=== PATIENT | female | born 1950 | race Caucasian/White ===

== ENCOUNTER → 2021-05-10 15:46 | Outpatient (CLI) | payer MEDICARE, OTHER, SELFPAY ==
--- NOTE | 2021-05-10 15:50 | CT_ITS ---
STUDY: RIGHT LOWER EXTREMITY CT SCAN REASON FOR EXAM: Female, 70 years old. PRE OP. Arthroplasty planning. Osteoarthritis. RADIATION DOSAGE (If Supplied By Facility): CTDIvol = ( 18.76 ) mGy, DLP = ( 1196.64 ) mGycm. Individualized dose optimization techniques were used for this CT.? TECHNIQUE: Axial multidetector CT scan of the right lower extremity. Coronal and sagittal reformatted images. COMPARISON: None. FINDINGS: No acute fracture, dislocation or bone destruction. No acute muscle abnormality. No solid, cystic or lipomatous soft tissue lesions given CT technique. Right hip: Mild right hip osteoarthritis. Moderate pubic symphysis arthrosis. Hysterectomy. Colonic diverticulosis. Right knee: Mild patellofemoral arthrosis. Severe medial compartment arthrosis. Mild/moderate lateral compartment arthrosis. Osteophytes. Moderate volume joint effusion. Small popliteal cyst. Moderate anterior swelling. Right ankle: Mild tibiotalar arthrosis. Tiny plantar spur. CT/Extremity Lower without Contra IMPRESSION: Right knee osteoarthritis predominating medially Right knee joint effusion, popliteal cyst and swelling Additional degenerative changes, as above Electronically Signed: Deon Cody DO at 8:15 EDT Tel , Service support ,
== END ==
PROVIDERS: PCP Family Medicine; Referring Provider Physician Assistant Surgical; Visit Provider Physician Assistant Surgical
DX: M17.11 Unilateral primary osteoarthritis, right knee (principal)
CPT/HCPCS: 73700

== ENCOUNTER → 2021-05-24 10:05 | Outpatient (CLI) | payer MEDICARE, OTHER, SELFPAY ==
--- NOTE | 2021-05-11 21:23 | HP.PCM_ITS ---
History and Physical History and Physical [facility] Patient Name: Julissa Ahmadi : 1950 From: GAIL MCKEON PA-C DATE OF SURGERY: 05/31/2021 SCHEDULED PROCEDURE: right total knee arthroplasty HISTORY OF PRESENT ILLNESS: Preoperative history and physical exam was performed on May 10, 2021. Patient has had ongoing bilateral knee pain since 2011. She states over the past 1 year it has been progressively been getting worse. She was initially treated by outside orthopedic group. She has had previous corticosteroid injections in the bilateral knees with only 2 weeks of relief. Her pain is continued to be aching, sharp, stabbing, sore. Increased pain going up and down stairs and walking. Increased pain with prolonged standing. She has difficulty with bathing/showering, getting dressed, housework, and shopping. She has trips are stumbled due to the pain. She has pain and feels unsafe climbing a ladder. She has tried rest, ice, elevation with minimal relief. She has tried oral medications with no relief in symptoms. She denies previous surgery on the knee. Her pain can reach his high as an 8/10. After failing conservative measures and discussing all treatment options with Dr. Steve Mckay, the patient does wish to proceed with a right total knee arthroplasty. We are obtaining surgical clearance from the patient's primary care physician Dr. Dumas. She has medical history pertinent for thyroid disease, hypertension, depression. She denies chest pain, shortness of breath, fevers chills, recent infections. REVIEW OF SYSTEMS: ROS: Const: Reports change in appetite and weight change, but denies fever. CV: Reports irregular heartbeat, but denies chest pain and heart murmur. Resp: Reports cough, but denies pneumonia, shortness of breath, tuberculosis and wheezing. GI: Reports heartburn, but denies constipation, diarrhea, nausea, rectal itching, bloody stools and vomiting. : Denies incontinence. Musculo: Reports gait disturbance, leg swelling, trouble walking and weakness, but denies pain. Skin: Denies Raynaud's, history of shingles and tattoo. Neuro: Denies ambulatory dysfunction, dizziness, numbness/tingling and tremor. Psych: Denies anxiety, insomnia and stress. Brett/Lymph: Denies anemia, bleeding/bruising tendency and past transfusion. Reviewed, no changes. PAST MEDICAL HISTORY: Advance Care Plan: No Advance Directives Effective Date: 04/21/2021 PMH: Medical Problems: Arthritis, Depression, Hard of Hearing, High Blood Pressure, Hypercholesterolemia, Thyroid Disease Accidents: None Surgical Hx: Hysterectomy - (2000) [facility] Shoulder Arthroscopy Rt - (2010) [facility] Anesthesia Complications: None Assistive Devices: Glasses - READING Reviewed and updated. SOCIAL HISTORY: SH: Marital: .Occupation: Retired.Work Status: Retired.Hand Dominance: Left- handed. Personal Habits: Cigarette Use: Never Smoked Cigarettes.Smokeless Tobacco: Never Used Smokeless Tobacco.E-Cigarette Use: Never used.Alcohol: Denies use.Drug Use: Denies Use.Enjoy Exercising: Exercises 1-3 x/month. Reviewed, no changes. VITALS: Ht: 63 Wt: 164lb Wt k.390 BMI: 29.0 BP: 126/82 Pulse: 76 Resp: 14 T: 97.3 T: 36.3C Pain Level: 5 ALLERGIES: Medications For High Cholesterol MEDICATIONS: Esomeprazole Magnesium 20 mg 1po bid, Ibuprofen 200 200 mg 2 by mouth as needed, Levothyroxine Sodium 112 mcg 1po qday, Lisinopril 20 mg 1po bid, Venlafaxine HCL 100 mg 1.5 PO qday PRE-OP EXAM: General appearance:NORMAL Other: Eyes: Conjunctivae and lids: NORMAL Pupils: ERR Ears, Nose, Mouth, and Throat: NORMAL Other: Inspection of lips, teeth and gums: NORMAL Other: Neck: Examination of neck: no masses noted. Respiratory: Assessment of respiratory effort: NORMAL Other: Auscultation of lungs: clear to auscultation no wheezes, rhonchi or rales. Cardiovascular: Auscultation of heart: regular rate and rhythm, no murmurs, gallops or rubs. Exam of carotid arteries: NORMAL Other: Gastrointestinal: Exam of abdomen: soft, nontender, nondistended bowel sounds present. PHYSICAL EXAMINATION: Patient's right knee is cool to touch without erythema or signs of infection. She has tenderness to palpation along medial joint line. Bilateral knees have varus deformity which is partially correctable on exam. She has positive crepitus in bilateral knees. Range of motion: Right knee lacks 2 full extension to 90 flexion with increased pain, left knee lacks 1 full extension 120 flexion. She does walk with an antalgic gait. Stable to anterior/posterior drawer. Sensation intact to light touch. IMAGING STUDIES: X-ray of the right knee was reviewed from outside institution on December 23, 2020 reveals medial joint space narrowing, subchondral sclerosis, osteophyte f ormation consistent with severe medial compartment osteoarthritis with bony erosions. There is varus deformity. Patient does have tricompartmental osteoarthritis with most severe in the medial compartment. X-rays of the left knee were reviewed from outside institution on December 23, 2020 reveals varus deformity with medial joint space narrowing, subchondral sclerosis, osteophyte formation consistent with grade 4 tricompartmental osteoarthritis with most severe in the medial compartment. There are bony erosions in the medial compartment. IMPRESSION: 1. Severe right knee osteoarthritis with varus deformity 2. Severe left knee osteoarthritis with varus deformity 3. Hypertension 4. Thyroid disease 5. Hypercholesterolemia 6. Depression PLAN: I did discuss and review with the patient all treatment options including surgical versus nonsurgical options. Patient does wish to proceed with the above-stated procedure. Potential risks, benefits, and complications of the procedure were discussed in detail including but not limited to , infection, nerve and blood vessel damage, persistent pain, numbness, tingling, paresthesias, blood clot, pulmonary embolism, and requirement for possible further surgery. The patient expressed full understanding and has no further questions for the doctor. Patient does agree to proceed with the above-stated procedure and has signed the surgery consent form. We discussed the current risks associated with COVID 19. This does include the risk of exposure while in the hospital. Patient was reassured local hospitals have low infection rates and are taking all necessary precautions to avoid exposure to patients. In addition, we discussed strategies that can be used to help limit exposure including those that limit the patient's time in the hospital. Also using strategies to limit the patient's need for continued inpatient services after being discharged from the hospital. Patient was notified that we will need to comply with any screening or testing the hospital wishes to perform or that surgery may be delayed for any positive results. This dictation was created using voice recognition software. Phonetic and/or grammatical errors may exist. ___ I have re-examined the patient. There are no clinical changes since date of exam. ___ See progress notes for changes. ___ Dictated on admission Date: Time: Signature:
[2021-05-24 13:41] LABS: Absolute Lymphocyte Count 1.39 X10^3/uL (0.83-4.51); Absolute Neutrophil Count 3.2 X10^3/uL (2.0-7.7); Basophil# 0.03 X10^3/uL; Basophil% 0.6 % (0-1); Eosinophil# 0.13 X10^3/uL; Eosinophils% 2.5 % (0-5); Hematocrit 43.9 % (37-47); Hemoglobin 14.2 g/dL (12.0-15.0); Lymphocyte # 1.39 X10^3/ul (0.83-4.51); Lymphocyte % 26.9 % (19-41); Mean Corp Hgb Conc 32.3 g/dL (32-36); Mean Corpuscular Hgb 31.5 pg (27.0-32.0); Mean Corpuscular Volume 97.3 fL (81-99); Mean Platelet Vol. 9.8 fl (6.2-12.0); Monocyte# 0.37 X10^3/uL; Monocyte% 7.2 % (0-10); NRBC Flagged by Analyzer 0 % (0-5); Platelet Count 276 K/mm3 (150-450); RBC Distribution Width CV 13.2 % (11.6-14.6); RBC Distribution Width SD 47.6 fl (35.1-43.9); Red Blood Count 4.51 M/mm3 (4.2-5.4); White Blood Count 5.2 K/mm3 (4.4-11.0)
[2021-05-24 14:09] LABS: Albumin, Serum 3.3 g/dL (3.2-5.0); Anion Gap 3 (5-15); BUN 15 mg/dL (7-18); BUN/Creat Ratio 21.5 RATIO (10-20); Calcium,Total 9.4 mg/dL (8.5-10.1); Chloride 106 mmol/L (98-107); EST Glomerular Filtration Rate 88 mL/min (>60); Est Glom Filt Rate - Afr Amer 107 mL/min (>60); Glucose 108 mg/dL (74-106); Potassium 4.2 mmol/L (3.5-5.1); Sodium Level 138 mmol/L (136-145); Thyroid Stim Hormone (TSH) 2.27 uIU/mL (0.358-3.74)
[2021-05-25 08:18] LABS: Magnesium 2.3 mg/dL (1.6-2.6)
== END ==
PROVIDERS: Anesthesiology; PCP Family Medicine; Referring Provider Specialist; Visit Provider Specialist
DX: Z01.810 Encounter for preprocedural cardiovascular examination (principal); Z01.818 Encounter for other preprocedural examination
CPT/HCPCS: 36415; 80048; 82040; 83735; 84443; 85025; 87081

== ENCOUNTER → 2021-06-19 16:01 | Outpatient (CLI) | payer MEDICARE, OTHER, SELFPAY ==
[2021-06-19 17:32] LABS: Absolute Lymphocyte Count 1.84 X10^3/uL (0.83-4.51); Absolute Neutrophil Count 3.3 X10^3/uL (2.0-7.7); Basophil# 0.02 X10^3/uL; Basophil% 0.3 % (0-1); Eosinophil# 0.13 X10^3/uL; Eosinophils% 2.3 % (0-5); Hematocrit 44.7 % (37-47); Hemoglobin 14.3 g/dL (12.0-15.0); Lymphocyte # 1.84 X10^3/ul (0.83-4.51); Lymphocyte % 31.9 % (19-41); Mean Corpuscular Hgb 30.9 pg (27.0-32.0); Mean Corpuscular Volume 96.5 fL (81-99); Mean Platelet Vol. 10.5 fl (6.2-12.0); Monocyte# 0.49 X10^3/uL; Monocyte% 8.5 % (0-10); NRBC Flagged by Analyzer 0 % (0-5); Neutrophil # 3.26 X10^3/uL (2.7-7.7); Neutrophil % 56.5 % (47-70); Platelet Count 247 K/mm3 (150-450); RBC Distribution Width CV 13.2 % (11.6-14.6); RBC Distribution Width SD 47.1 fl (35.1-43.9); Red Blood Count 4.63 M/mm3 (4.2-5.4); White Blood Count 5.8 K/mm3 (4.4-11.0)
[2021-06-19 18:10] LABS: Anion Gap 6 (5-15); BUN 15 mg/dL (7-18); BUN/Creat Ratio 21.3 RATIO (10-20); Calcium,Total 9.6 mg/dL (8.5-10.1); Chloride 107 mmol/L (98-107); EST Glomerular Filtration Rate 87 mL/min (>60); Est Glom Filt Rate - Afr Amer 105 mL/min (>60); Glucose 97 mg/dL (74-106); Sodium Level 138 mmol/L (136-145)
[2021-06-20 08:55] LABS: Albumin, Serum 3.6 g/dL (3.2-5.0)
== END ==
PROVIDERS: PCP Family Medicine; Referring Provider Physician Assistant Surgical; Visit Provider Physician Assistant Surgical
DX: Z01.818 Encounter for other preprocedural examination (principal)
CPT/HCPCS: 36415; 80048; 82040; 85025

== ENCOUNTER → 2021-07-24 16:01 | Outpatient (CLI) | payer MEDICARE, OTHER, SELFPAY ==
--- NOTE | 2021-07-24 16:03 | VDLE_ITS ---
Reason For Study: Pain RIGHT LEFT GSV is normal. CFV is compressible, spontaneous, phasic, CFV is compressible, spontaneous, phasic, competent, and demonstrates normal competent and demonstrates normal augmentation. augmentation. FV is compressible, spontaneous, phasic, competent and demonstrates normal augmentation. POP V is compressible, spontaneous, phasic, competent and demonstrates normal augmentation. T/P Trunk is compressible. PTV is compressible. Rt SoleusV and Rt PeroV are dilated and non compressible consistent with acute DVT. Procedure This is a venous duplex using B-mode, color flow and spectral Doppler. Exam performed in department. Patient sent to ED. A preliminary report was called and/or faxed to [facility]. VL/Venous Duplex US, Unilateral Interpretation Summary Acute deep venous thrombosis right soleus and peroneal veins. Patent and compressible right great saphenous vein Normal flow patterns left common femoral vein Ordering Physician: Neli Winters Referring Physician: Carter Dumas Performed By: Riya Torres, RU, RVT
== END ==
PROVIDERS: PCP Family Medicine; Referring Provider Physician Assistant Surgical; Visit Provider Physician Assistant Surgical
DX: I82.401 Acute embolism and thrombosis of unspecified deep veins of right lower extremity (principal); Z96.651 Presence of right artificial knee joint; M79.661 Pain in right lower leg; I10 Essential (primary) hypertension; E78.00 Pure hypercholesterolemia, unspecified; F32.A Depression, unspecified; E07.9 Disorder of thyroid, unspecified; K21.9 Gastro-esophageal reflux disease without esophagitis; M19.90 Unspecified osteoarthritis, unspecified site; G43.909 Migraine, unspecified, not intractable, without status migrainosus; Z79.01 Long term (current) use of anticoagulants; Z79.899 Other long term (current) drug therapy
CPT/HCPCS: 85027; 93971; 99283

== ENCOUNTER 2021-07-24 16:44 | Emergency (ER) | payer MEDICARE, OTHER, SELFPAY ==
[2021-07-24 16:45] VITALS: BP 168/96; PULSE 67; RESP 18; TEMP 36.5; O2SAT 99; BMI 31.1
--- NOTE | 2021-07-24 20:06 | ED.VIS.LOWEX ---
HPI History of Present Illness Chief Complaint: Lower Extremity Injury Informant: patient Narrative Narrative: Patient sent here from radiology department for an outpatient ultrasound positive for DVT. Status post elective right total knee arthroplasty [address] Mckay. Patient followed up today. States had pains while in the cast since surgery. No chest pains or shortness of breath. Ultrasound was ordered as an outpatient. Patient sent here after positive findings. Denies history of kidney injury. She states a few months ago had similar symptoms that was self-limiting. No diagnosis of DVT or PE in the past. Reviewing records positive DVT right lower extremity of the soleus and peroneal vein. Prior similar symptoms: Yes PFSH PFSH Medical History Arthritis Back pain Chronic cough Depression Gastric reflux High cholesterol History of echocardiogram History of edema History of irregular heartbeat History of pain when walking History of steroid therapy History of stress test Hypertension Leg cramps Migraine headache Non-smoker Shortness of breath on exertion Thyroid disease Wears glasses Home Medications Lacto.acidophilus-Bif.animalis [Probiotic] 1 cap PO DAILY 05/17/21 [History Last Taken Unknown] acetaminophen-caffeine [Excedrin Tension Headache] 2 tab PO Q8H PRN 05/17/21 [History Last Taken Unknown] esomeprazole magnesium [Nexium 24HR] 20 mg PO DAILY 05/17/21 [History Last Taken Unknown] levothyroxine 112 mcg PO DAILY 05/17/21 [History Last Taken Unknown] lisinopril 20 mg PO BID 05/17/21 [History Last Taken Unknown] venlafaxine 150 mg PO QHS 05/17/21 [History Last Taken Unknown] apixaban [Eliquis DVT-PE Treat 30D Start] 5 mg PO BID #74 tab 07/24/21 [Rx Last Taken Unknown] meloxicam [Mobic] 07/24/21 [History Last Taken Unknown] meloxicam [Mobic] 7.5 mg PO DAILY 07/24/21 [History Last Taken Unknown] oxycodone 07/24/21 [History Last Taken Unknown] Allergy/AdvReac Type Severity Reaction Status Date / Time Ucrbjno-Vzb-Dxw Reductase Allergy Pain in Verified 07/24/21 16:46 Inhibitor joints Surgical History Hx of breast lump removal Hx of colonoscopy Hx of hemorrhoidectomy Hx of hysterectomy Hx of shoulder surgery Social History Smoking Status: Never smoker ROS ROS ED Constitutional Constitutional ED: Denies chills, fever(s) or sweats Eyes Eyes: Denies change in vision ENT ENT ED: Denies dysphagia or sore throat Cardiovascular Cardiovascular: Denies chest pain, leg edema, palpitations or racing heartbeat Respiratory/Chest Respiratory/Chest: Denies cough, dyspnea or dyspnea on exertion Gastrointestinal Gastrointestinal: Denies abdominal pain, diarrhea, nausea or vomiting Genitourinary Genitourinary ED: Denies dysuria, hematuria or urinary frequency Musculoskeletal Musculoskeletal: Reports other Details: Right calf pain ; Denies back pain, extremity pain or neck pain Integumentary Denies rash or wounds Neurologic Neurologic: Denies headache(s), paresthesias or weakness EXAM Physical Exam Const Vital Signs: 07/24/21 16:45 07/24/21 20:25 07/24/21 20:31 Temperature 97.7 F L Temperature Source Temporal Pulse Rate 67 82 62 Respiratory Rate 18 17 17 Blood Pressure 168/96 H Blood Pressure Mean 120 Pulse Ox 99 100 Oxygen Delivery Method Room Air Room Air 07/24/21 20:35 Temperature Temperature Source Pulse Rate Respiratory Rate Blood Pressure 186/99 H Blood Pressure Mean 128 Pulse Ox Oxygen Delivery Method Positive well nourished and well developed General Appearance ED: well developed and NAD HEENT Reports moist mucous membranes normocephalic and atraumatic Eyes PERRL, EOMs intact bilaterally and conjunctivae normal General Eye ED: Yes normal appearance of both eyes Neck no lymphadenopathy and supple General: Negative for tenderness Chest Wall Chest: Negative for tenderness Resp normal respiratory effort and normal air movement Effort and Inspection: symmetric chest movement; Negative for respiratory distress Cardio regular rate, regular rhythm and no murmurs Peripheral Pulses: pulses 2+ throughout GI normal to inspection, nondistended, normoactive bowel sounds and non-tender Palpation: Negative for guarding or rebound tenderness present Back/Spine no CVA tenderness and no thoracic nor lumbar tenderness Extremity Extremity Narrative: Right lower extremity slight asymmetry with swelling. Mild calf pain. Knee incision healing with no erythema or drainage. Also healing excision of the distal mid anterior tibia. No erythema. Pulses are intact distally. General Extremety ED: Yes edema; Negative for tenderness General Extremity: edema Neuro oriented x3 and no sensory deficits noted Sensorium / Orientation: awake and alert Skin no rashes or lesions noted and no wounds MDM MDM MDM Narrative Medical decision making narrative: Patient positive distal leg DVT. Creatinine clearance was 87 with a creatinine of 0.7 June 19, 2021. Patient started on Eliquis 10 mg. Starter pack provided. Will discuss with her primary team for continued management for least 3 to 6 months. Patient will monitor for any bleeding issues. I spoke with her PCP Dr. Dumas updated on patient's final results. Preop hemoglobin is 14. He requests recheck for baseline following. This was ordered. He agrees with plan of care. He will see her this week in the office. All questions were answered with patient. Lab Data Attestation: I reviewed the patient's lab results. Labs: Laboratory Results - last 24 hr 07/24/21 20:30 WBC 10.3 RBC 4.18 L Hgb 12.9 Hct 40.4 MCV 96.7 MCH 30.9 MCHC 31.9 L RDW Std Deviation 48.9 H RDW Coeff of Kari 13.7 Plt Count 459 H MPV 8.8 Discharge Plan Triage Chief Complaint: Lower Extremity Injury ED Provider: Ziggy Richter Dx/Rx/DC Orders Clinical Impression: Acute deep vein thrombosis (DVT) of right lower extremity, Status post revision of total replacement of right knee Instructions: DVT Dc Prescriptions: New Eliquis DVT-PE Treat 30D Start 5 mg (74 tabs) tablets,dose pack 5 mg PO BID Qty: 74 RF: 0 No Action Excedrin Tension Headache 500-65 mg Tablet 2 tab PO Q8H PRN (Reason: Headache) RF: 0 lisinopril 20 mg tablet 20 mg PO BID RF: 0 venlafaxine 150 mg capsule,extended release 24hr 150 mg PO QHS RF: 0 levothyroxine 112 mcg tablet 112 mcg PO DAILY RF: 0 esomeprazole magnesium [Nexium 24HR] 20 mg Capsule,Delayed Release(Dr/Ec) 20 mg PO DAILY RF: 0 Probiotic 5 billion cell Capsule, Sprinkle 1 cap PO DAILY RF: 0 meloxicam [Mobic] 7.5 mg Tablet RF: 0 meloxicam [Mobic] 7.5 mg Tablet 7.5 mg PO DAILY RF: 0 oxycodone 5 mg tablet RF: 0 Primary Care Provider: Carter Dumas Referrals: Carter Dumas MD [Primary Care Provider] - 3-5 Days Activity Restrictions/Additional Instructions: Right lower extremity DVT of soleus and peroneal vein. Take blood thinner as prescribed. Follow-up with your doctor. Disposition Disposition: Home, Self Care Discharge Date/Time: 07/24/21 21:31
[2021-07-24] MEDS: APIXABAN 5 MG TABLET 10 MG PO (20:24)
[2021-07-24 20:25] VITALS: PULSE 82; RESP 17
[2021-07-24 20:31] VITALS: PULSE 62; RESP 17; O2SAT 100
[2021-07-24 20:35] VITALS: BP 186/99
[2021-07-24 20:45] LABS: Hematocrit 40.4 % (37-47); Hemoglobin 12.9 g/dL (12.0-15.0); Mean Corp Hgb Conc 31.9 g/dL (32-36); Mean Corpuscular Hgb 30.9 pg (27.0-32.0); Mean Corpuscular Volume 96.7 fL (81-99); Mean Platelet Vol. 8.8 fl (6.2-12.0); Platelet Count 459 K/mm3 (150-450); RBC Distribution Width CV 13.7 % (11.6-14.6); RBC Distribution Width SD 48.9 fl (35.1-43.9); Red Blood Count 4.18 M/mm3 (4.2-5.4); White Blood Count 10.3 K/mm3 (4.4-11.0)
== END 2021-07-24 21:31 | disposition home or self-care (01) ==
LOC: ED 20:19
PROVIDERS: Emergency Provider Emergency Medicine; PCP Family Medicine
DX: I82.401 Acute embolism and thrombosis of unspecified deep veins of right lower extremity (principal); Z96.651 Presence of right artificial knee joint; I10 Essential (primary) hypertension; E78.00 Pure hypercholesterolemia, unspecified; F32.A Depression, unspecified; E07.9 Disorder of thyroid, unspecified; K21.9 Gastro-esophageal reflux disease without esophagitis; M19.90 Unspecified osteoarthritis, unspecified site; G43.909 Migraine, unspecified, not intractable, without status migrainosus; Z79.01 Long term (current) use of anticoagulants; Z79.899 Other long term (current) drug therapy
CPT/HCPCS: 85027

== ENCOUNTER 2021-10-25 12:38 | Outpatient (CLI) | payer MEDICARE, OTHER, SELFPAY ==
--- NOTE | 2021-10-25 12:41 | VDLE_ITS ---
Reason For Study: Thrombophlebitis of deep vein of right calf RIGHT LEFT GSV is normal. CFV is compressible, spontaneous, phasic, CFV is compressible, spontaneous, phasic, competent, and demonstrates normal competent and demonstrates normal augmentation. augmentation. FV is compressible, spontaneous, phasic, competent and demonstrates normal augmentation. POP V is compressible, spontaneous, phasic, competent and demonstrates normal augmentation. T/P Trunk is compressible. PTV is compressible. RT PerV is compressible. SoleusV is compressible. Procedure This is a venous duplex using B-mode, color flow and spectral Doppler. Exam performed in department. Compared to 07/24/2021. A preliminary report was called and/or faxed to [facility]. VL/Venous Duplex US, Unilateral Interpretation Summary There is no evidence of right lower extremity deep vein thrombosis. Right great saphenous vein appears patent and compressible segmentally. Normal flow patterns left common f emoral vein Improvement is noted from the previous examination July 24, 2021 Ordering Physician: Carter Dumas Referring Physician: Carter Dumas Performed By: Zina Moreno RVT
== END 2021-10-25 23:59 | disposition home or self-care (01) ==
LOC: CVS 12:40
PROVIDERS: PCP Family Medicine; Referring Provider Family Medicine; Visit Provider Family Medicine
DX: I80.201 Phlebitis and thrombophlebitis of unspecified deep vessels of right lower extremity (principal); M79.661 Pain in right lower leg
CPT/HCPCS: 93971

== ENCOUNTER → 2024-07-03 | Outpatient (CLI) | payer MEDICARE, OTHER, SELFPAY ==
--- NOTE | 2024-07-03 14:42 | VDLE_ITS ---
Reason For Study: Swelling LLE RIGHT LEFT CFV is compressible, spontaneous, phasic, GSV is normal. competent and demonstrates normal CFV is compressible, spontaneous, phasic, augmentation. competent, and demonstrates normal Procedure augmentation. This is a venous duplex using B-mode, color FV is compressible, spontaneous, phasic, flow and spectral Doppler. competent and demonstrates normal Exam performed in department. augmentation. A preliminary report was called and/or faxed POP V is compressible, spontaneous, phasic, to Dr. Mckay. competent and demonstrates normal augmentation. T/P Trunk is compressible. PTV is compressible. LT PerV is compressible. VL/Venous Duplex US, Unilateral Interpretation Summary Deep veins of the left lower extremity are patent and compressible segmentally. There is no evidence of left lower extremity deep vein thrombosis. Valvular competence appears intac t within the proximal deep venous system on the left . The left great saphenous vein appears patent a nd compressible segmentally. The right common femoral vein is patent and compressible . Ordering Physician: Steve Mckay Referring Physician: Carter Dumas Performed By: Riya Torres, RU, RVT
== END | disposition home or self-care (01) ==
LOC: CVS 14:40
PROVIDERS: PCP Family Medicine; Referring Provider Specialist; Visit Provider Specialist
DX: R22.42 Localized swelling, mass and lump, left lower limb (principal)
CPT/HCPCS: 93971